=== PATIENT | female | born 1925 | race Caucasian/White ===

== ENCOUNTER 2017-01-08 17:17 | Emergency (ER) | payer MEDICARE, BC ==
--- NOTE | 2017-01-11 12:45 | ER ---
ADMIT: 01/08/2017 RM/LOC: ER [facility] MR#: [id number] [address] [address] [place] [address] Emergency Room Report SEX: F AGE: 89 : 1925 DATE: 01/08/2017 SUBJECTIVE: The patient is an 89-year-old female with a past medical history of hypertension, atrial fibrillation, and cardiomyopathy, who recently has been hospitalized about a week ago for left hip replacement and 2 days ago, has been diagnosed with pulmonary emboli with symptoms of shortness of breath. The patient was started on Coumadin. In the nursing facility, the patient had a low fever of 102, and the patient was transferred to the ER for further evaluation. The patient is alert, oriented, and in no distress. States that the shortness of breath has decreased from 2 days ago. PHYSICAL EXAMINATION: VITAL SIGNS: The patient had a temperature of 100.3 in the ER and received Tylenol, respiratory rate was 24 with O2 saturation of 92% on room air. The patient was mildly tachycardic with heart rate of 106 and was started on IV fluid 1 L of normal saline bolus, blood pressure was 115/64. GENERAL: The patient was alert and oriented to person, place, and time. HEAD AND NECK: Normal. CHEST: Clear bilaterally. I did not hear any crackles. HEART: Normal heart sounds. ABDOMEN: Soft. No CVA tenderness. No rebound or tenderness. No guarding. EXTREMITIES: In the extremities, I did not see any swelling. Surgical wound in the left hip is clean, and there is very mild serosanguineous discharge without any pus discharge or without any erythema. I did not feel any fluctuations on the surgical wound. IMAGING: Chest x-ray was negative for any infiltration or acute changes, and EKG showed left bundle-branch block with atrial fibrillation. LABORATORY DATA: White blood count was 22,000 with left shift, 21,000 absolute neutrophil count. Hemoglobin was 10 with platelets of 151,000. Procalcitonin was elevated to 2.7 and lactic acid was elevated to 2. ADMIT: 01/08/2017 RM/LOC: ER [facility] MR#: [id number] [id number] [address] [place] [address] Emergency Room Report SEX: F AGE: 89 : 1925 Creatinine was 0.6. Urine was positive for 182 white blood cell and white blood cell clumps and 8 rbc's and positive for nitrite too. CRP was also elevated to 10.5. IMPRESSION: With the diagnosis of complicated urinary tract infection, the patient received levofloxacin in the ER. The patient's INR is also 4.1 knowing that the patient is on Coumadin and is hyper-therapeutic. The patient insisted on being transferred to [facility] as mentioned that all her doctors are in [facility]. The patient was admitted by [facility] and was transferred with a diagnosis of complicated urinary tract infection and hyperpyrexia, hyper-therapeutic INR, and recently diagnosed pulmonary emboli status post left hip replacement. Kade Zhou MD/ prashant JOB #: [id number] CC: Chuck Nagy MD, Attending Physician Raymundo Lane MD, Family Physician
== END 2017-01-08 20:52 | disposition short-term general hospital (02) ==
LOC: ER 17:17
DX: N39.0 Urinary tract infection, site not specified (principal); R79.1 Abnormal coagulation profile; R50.9 Fever, unspecified; I10 Essential (primary) hypertension; I42.9 Cardiomyopathy, unspecified; Z87.891 Personal history of nicotine dependence; Z86.711 Personal history of pulmonary embolism; Z90.49 Acquired absence of other specified parts of digestive tract; Z79.01 Long term (current) use of anticoagulants; Z79.82 Long term (current) use of aspirin; Z88.0 Allergy status to penicillin; Z88.5 Allergy status to narcotic agent; Z88.8 Allergy status to other drugs, medicaments and biological substances; Z79.899 Other long term (current) drug therapy